=== PATIENT | female | born 1950 | race Caucasian/White ===

== ENCOUNTER 2020-08-26 10:25 | Emergency (ER) | payer MEDICARE, OTHER ==
[~2020-08-26] VITALS: Ht 152.4 cm; Wt 72.6 kg
[2020-08-26 14:30] LABS: BASOPHILS # (AUTO) 0.1 (0.0-0.1); BASOPHILS % 0.8 % (0.0-1.0); EOSINOPHILS # (AUTO) 0.2 (0.0-0.4); EOSINOPHILS % 2.1 % (0.0-6.0); HEMOGLOBIN 12.2 g/dL (12.0-16.0); LYMPHOCYTES # (AUTO) 1.8 (1.0-3.2); LYMPHOCYTES % 23.5 % (18.0-39.1); MEAN CORPUSCULAR HEMOGLOBIN 28.9 pg (28-32); MEAN CORPUSCULAR HGB CONC 31.3 g/dL (31-35); MEAN CORPUSCULAR VOLUME 92.4 fL (81-99); MONOCYTES # (AUTO) 0.4 (0.2-0.8); MONOCYTES % 5.8 % (4.4-11.3); NEUTROPHILS % 67.5 % (38.7-80.0); PLATELET COUNT 335 x10e3/uL (140-360); RED BLOOD COUNT 4.22 x10e6/uL (3.6-5.1)
[2020-08-26 14:50] LABS: ALBUMIN 3.9 g/dL (3.5-5.0); ALBUMIN/GLOBULIN RATIO 1.1 (0.8-2.0); ANION GAP 12.1 mmol/L (8-16); CALCIUM 9.5 mg/dL (8.4-10.2); CREATININE, SERUM 0.69 mg/dL (0.57-1.11); POTASSIUM 4.1 mmol/L (3.5-5.1)
== END 2020-08-26 16:22 | disposition home or self-care (01) ==
LOC: ER 10:46
DX: H54.62 Unqualified visual loss, left eye, normal vision right eye (principal); H40.9 Unspecified glaucoma; R01.1 Cardiac murmur, unspecified
CPT/HCPCS: 36415; 70450; 80053; 85025; 85651; 99284